=== PATIENT | male | born 1975 | race Caucasian/White ===

== ENCOUNTER 2017-01-03 09:38 | Emergency (ER) | payer SELFPAY ==
[2017-01-03] MEDS ORDERED: IBUPROFEN 400 MG TABLET PO STA (10:57)
[2017-01-03] MEDS ORDERED: ACETAMINOPHEN 325 MG TABLET PO STA (10:57)
[2017-01-03] MEDS ORDERED: IBUPROFEN 400 MG TABLET PO ONE (11:07)
[2017-01-03] MEDS ORDERED: ACETAMINOPHEN 325 MG TABLET PO ONE (11:08)
== END 2017-01-03 11:35 | disposition home or self-care (01) ==
DX: S62.324A Displaced fracture of shaft of fourth metacarpal bone, right hand, initial encounter for closed fracture (principal); S66.394A Other injury of extensor muscle, fascia and tendon of right ring finger at wrist and hand level, initial encounter; W22.8XXA Striking against or struck by other objects, initial encounter; F17.200 Nicotine dependence, unspecified, uncomplicated
CPT/HCPCS: 29125; 73130; 99283; 99284; A9270

== ENCOUNTER 2018-01-24 17:26 | Outpatient (CLI) | payer OTHER | END 2018-01-24 17:27 | disposition critical access hospital (66) | LOC: EMS 17:26 | PROVIDERS: ATTEND Surgery | DX: R06.02 Shortness of breath (principal); R50.9 Fever, unspecified | CPT/HCPCS: A0425; A0427 ==

== ENCOUNTER 2018-01-24 18:00 | Emergency (ER) | payer OTHER ==
[2018-01-24] MEDS ORDERED: SODIUM CHLORIDE 0.9% 1,000 ML IV ONE (18:42)
[2018-01-24] MEDS ORDERED: guaiFENesin/CODEINE 5 ML UDC PO STA (18:42)
[2018-01-24] MEDS ORDERED: KETOROLAC 60 MG/2 ML VIAL IVP STA (18:42)
--- NOTE | 2018-01-24 18:45 | ED Physician Documentation ---
PD HPI HEENT - Stated complaint Stated Complaint: FEVER CHILLS - Chief complaint Chief Complaint: Resp - History obtained from History obtained from: Patient, EMS - History of Present Illness Timing - onset: Other (Sick for 7 days with cough, body aches, fevers, and now increasing shortness of breath. He has a history of pneumonia but no other heart or lung diseases. He does have severe myalgias. No recent travel. He received 2 breathing treatments in route with improvement but not resolution of his shortness of breath.) Review of Systems Ten Systems: 10 systems reviewed and negative Constitutional: reports: Fever, Chills, Myalgias, Fatigue Nose: reports: Congestion. denies: Rhinorrhea / runny nose Throat: denies: Sore throat Cardiac: reports: Chest pain / pressure Respiratory: reports: Dyspnea, Cough GI: denies: Abdominal Pain PD PAST MEDICAL HISTORY - Past Medical History Cardiovascular: None Respiratory: None, Pneumonia Neuro: None Endocrine/Autoimmune: None GI: Other : None HEENT: None Psych: None Musculoskeletal: None Derm: None - Past Surgical History Past Surgical History: No - Present Medications Home Medications: Ambulatory Orders Medication Instructions Recorded Confirmed HYDROcod/ACETAM 5/325 [[place] 5/325] 1 - 2 ea PO Q6H PRN #15 tablet 10/11/16 Albuterol Sulfate [Proventil Hfa 1 - 2 puffs IH Q4H PRN #1 01/24/18 Inhaler] hfa.aer.ad Doxycycline Hyclate 100 mg PO BID #14 tablet 01/24/18 guaiFENesin/CODEINE [Robitussin AC] 5 - 10 ml PO Q6H PRN #120 ml 01/24/18 predniSONE [Deltasone] 60 mg PO DAILY 5 Days tablet 01/24/18 - Allergies Allergies/Adverse Reactions: Allergies Allergy/AdvReac Type Severity Reaction Status Date / Time No Known Drug Allergies Allergy Unverified 01/24/18 18:04 - Social History Does the pt smoke?: No Smoking Status: Never smoker Does the pt drink ETOH?: No Does the pt have substance abuse?: No - Immunizations Immunizations are current?: Yes Immunizations: TDAP current <10years PD ED PE NORMAL - Vitals Vital signs reviewed: Yes - General General: Alert and oriented X 3, Other (Frequent cough) - HEENT HEENT: PERRL, EOMI - Neck Neck: Supple, no meningeal sign, No bony TTP - Cardiac Cardiac: RRR, No murmur - Respiratory Respiratory: No respiratory distress, Clear bilaterally - Abdomen Abdomen: Normal bowel sounds, Soft, Non tender - Back Back: No CVA TTP, No spinal TTP - Derm Derm: Normal color, Warm and dry - Extremities Extremities: No edema, No calf tenderness / cord - Neuro Neuro: Alert and oriented X 3, Normal speech - Psych Psych: Normal mood, Normal affect Results - Vitals Vitals: Vital Signs - 24 hr 01/24/18 01/24/18 18:01 18:04 Temperature 38.7 C H Heart Rate 113 H Respiratory 22 Rate Blood Pressure 167/85 H O2 Saturation 93 Oxygen O2 Source Room air - Labs Labs: Laboratory Tests 01/24/18 01/24/18 01/24/18 18:19 18:38 18:38 WBC 19.4 H RBC 4.74 Hgb 13.9 L Hct 42.3 MCV 89.3 MCH 29.4 MCHC 33.0 RDW 13.2 Plt Count 338 MPV 7.1 L Neut # 16.6 H Lymph # 1.6 [place] # 1.1 H Eos # 0.0 Baso # 0.1 Absolute Nucleated RBC 0.00 Nucleated RBC % 0.0 D-Dimer Sodium 139 Potassium 3.7 Chloride 105 Carbon Dioxide 21 Anion Gap 13.0 BUN 13 Creatinine 0.9 Estimated GFR (MDRD) 92 Glucose 126 H Calcium 9.2 Total Bilirubin 0.6 AST 22 ALT 16 Alkaline Phosphatase 79 Total Protein 8.0 Albumin 4.3 Globulin 3.7 Albumin/Globulin Ratio 1.2 Lipase < 10 L Influenza A (Rapid) Negative Influenza B (Rapid) Negative Influenza Types A,B Ag - 01/24/18 19:02 WBC RBC Hgb Hct MCV MCH MCHC RDW Plt Count MPV Neut # Lymph # [place] # Eos # Baso # Absolute Nucleated RBC Nucleated RBC % D-Dimer 222.9 Sodium Potassium Chloride Carbon Dioxide Anion Gap BUN Creatinine Estimated GFR (MDRD) Glucose Calcium Total Bilirubin AST ALT Alkaline Phosphatase Total Protein Albumin Globulin Albumin/Globulin Ratio Lipase Influenza A (Rapid) Influenza B (Rapid) Influenza Types A,B Ag - Rads (name of study) 2v chest Radiology: EMP read contemporaneously (normal) PD MEDICAL DECISION MAKING - ED course ED course: 42-year-old gentleman appears quite ill with cough and week's worth of symptoms including body aches. His flu is negative and his chest x-ray is negative. He is noted to have leukocytosis at 19,000 and this does merit antibiotics despite clear chest x-ray. Departure - Departure Disposition: 01 Home, Self Care Clinical Impression: Bronchitis Condition: Good Record reviewed to determine appropriate education?: Yes Instructions: ED Bronchitis Asthmatic Prescriptions: Albuterol Sulfate [Proventil Hfa Inhaler] 1 - 2 puffs IH Q4H PRN #1 hfa.aer.ad PRN Reason: Cough Doxycycline Hyclate 100 mg PO BID #14 tablet guaiFENesin/CODEINE [Robitussin AC] 5 - 10 ml PO Q6H PRN #120 ml PRN Reason: Cough predniSONE [Deltasone] 60 mg PO DAILY 5 Days tablet Comments: Call your doctor to arrange a follow-up appointment, make the next available appointment. In the interim, return anytime if worse or if new symptoms develop. Your blood pressure was elevated today on check into the emergency department. This does not mean that you have hypertension, it is a common phenomenon to come to the emergency department and have elevated blood pressure. I recommend that you see your primary care physician within the week to have it rechecked when you are feeling better.
--- NOTE | 2018-01-24 18:47 | XRAY Report ---
EXAM: CHEST RADIOGRAPHY EXAM DATE: 01/24/2018 06:36 PM. CLINICAL HISTORY: Cough fever. COMPARISON: 09/04/2015. TECHNIQUE: 2 views. FINDINGS: Lungs/Pleura: No focal opacities evident. No pleural effusion. No pneumothorax. Mild hyperinflation. Mediastinum: Heart and mediastinal contours are normal. Other: None. IMPRESSION: No acute cardiopulmonary abnormality. [facility] Referring Provider Line: [phone] SITE ID: [id number]
[2018-01-24 18:48] LABS: BASOPHILS # (AUTO) 0.1 10^3/uL (0.0-0.1); MONOCYTES # (AUTO) 1.1 10^3/uL (0.0-1.0); MONOCYTES % (AUTO) 5.9 %; RED CELL DISTRIBUTION WIDTH 13.2 % (12.0-15.0)
[2018-01-24 18:53] LABS: BASOPHILS % (AUTO) 0.6 %; HGB - HEMOGLOBIN 13.9 g/dL (14.0-18.0); LYMPHOCYTES # (AUTO) 1.6 10^3/uL (1.5-3.5); MEAN CORPUSCULAR HEMOGLOBIN 29.4 pg (27.0-31.0); MEAN CORPUSCULAR VOLUME 89.3 fL (80.0-94.0); MEAN PLATELET VOLUME 7.1 fL (7.4-11.4); NEUTROPHILS # (AUTO) 16.6 10^3/uL (1.5-6.6); NEUTROPHILS % (AUTO) 85.5 %; PLT - PLATELET COUNT 338 10^3/uL (130-450); RED BLOOD COUNT 4.74 10^6/uL (4.70-6.10); WHITE BLOOD COUNT 19.4 x10^3/uL (4.8-10.8)
[2018-01-24 19:03] LABS: ALBUMIN 4.3 g/dL (3.2-5.5); ALBUMIN/GLOBULIN RATIO 1.2 (1.0-2.2); ALKALINE PHOSPHATASE 79 IU/L (42-121); ALT ALANINE AMINOTRANSFERASE 16 IU/L (10-60); AST ASPARTATE AMINOTRANSFERASE 22 IU/L (10-42); BILIRUBIN,TOTAL 0.6 mg/dL (0.2-1.0); BUN - BLOOD UREA NITROGEN 13 mg/dL (6-20); CALCIUM 9.2 mg/dL (8.5-10.3); CARBON DIOXIDE - CO2 21 mmol/L (21-32); CHLORIDE 105 mmol/L (101-111); CREATININE 0.9 mg/dL (0.6-1.2); GFR - MDRD 92 (>89); GLUCOSE 126 mg/dL (70-100); SODIUM 139 mmol/L (135-145)
[2018-01-24 19:04] LABS: LIPASE < 10 U/L (22-51)
[2018-01-24] MEDS ORDERED: DEXAMETHASONE 10 MG/ML VIAL IVP STA (19:38)
[2018-01-24] MEDS ORDERED: cefTRIAXone 1 GM in SODIUM CHLORIDE 0.9% MINIBAG 100 ML IV STA (19:38)
[2018-01-24 19:55] VITALS: BP 160/98
== END 2018-01-24 20:20 | disposition home or self-care (01) ==
LOC: EDUNIT# → ED 18:00
DX: J40 Bronchitis, not specified as acute or chronic (principal); R03.0 Elevated blood-pressure reading, without diagnosis of hypertension
CPT/HCPCS: 71046; 80053; 83690; 85025; 85379; 87275; 87276; 96365; 96375; 99283; 99284; A9270; 36415